=== PATIENT | male | born 1950 | race Caucasian/White ===

== ENCOUNTER 2024-05-15 04:26 | Emergency (ER) | payer MEDICARE, OTHER ==
[2024-05-15 05:01] LABS: Band 2 % (5-11); Hematocrit 44.2 % (42.0-52.0); Hemoglobin 15.4 g/dL (14.0-18.0); Lymphocytes 17 % (21-51); MDiff Complete? YES; Mean Corpuscular HGB CONC 34.9 g/dL (32.0-36.0); Mean Corpuscular Volume 94.6 fl (78.0-98.0); Mean Platelet Volume 5.8 fL (7.4-10.4); Monocytes 3 % (0-10); Neutrophil 78 % (42-75); Platelet Count 382 10x3/uL (130-400); RBC Distribution Width 10.8 % (11.5-14.5); Red Blood Cell (RBC) Count 4.67 mill/uL (4.70-6.10); White Blood Cell (WBC) Count 8.9 10x3/uL (4.8-10.8)
[2024-05-15] MEDS ORDERED: Sodium Chloride 0.9% 500 ML ONE ×3 (05:06→08:54)
[2024-05-15 05:08] LABS: ALT (SGPT) 17 U/L (Less than 45); AST (SGOT) 19 U/L (11-34); Albumin 4.2 g/dL (3.1-4.5); Alkaline Phosphatase 50 U/L (40-110); Anion Gap 24 mmol/L (10-20); BUN (Urea Nitrogen) 28 mg/dL (8.4-25.7); Bilirubin, Total 1.9 mg/dL (0.3-1.2); Calc. Creatinine Clearance 0 mL/min (70-130); Calcium 11.2 mg/dL (7.8-10.44); Carbon Dioxide 21 mmol/L (23-31); Chloride 96 mmol/L (98-107); Estimated GFR 54; Globulin 3.8 g/dL (2.4-3.5); Glucose 221 mg/dL (83-110); Lipase 80 U/L (8-78); Potassium 3.1 mmol/L (3.5-5.1); Sodium 138 mmol/L (136-145)
[2024-05-15] MEDS ORDERED: Pantoprazole 40 MG VIAL ONE (05:11)
[2024-05-15 05:21] LABS: Troponin I 0.012 ng/mL (< 0.028)
[2024-05-15] MEDS ORDERED: Mag-Al 1200 mg/1200 mg/30 ML UDCUP ONE (05:22)
[2024-05-15] MEDS ORDERED: Lidocaine Viscous Sol 2% 15 ml UD Cup ONE (05:22)
[2024-05-15] MEDS ORDERED: Piperacillin/Tazobactam 3.375 GM VIAL ONE (06:11)
[2024-05-15] MEDS ORDERED: Sodium Chloride 0.9% 100 ML ONE (06:12)
[2024-05-15] MEDS ORDERED: HYDROmorphone 0.5 MG/0.5 ML SYRINGE ONE (06:13)
[2024-05-15] MEDS ORDERED: Ondansetron PF 4 MG/2 ML Vial ONE (06:13)
[2024-05-15] MEDS ORDERED: Digoxin 0.5 MG/2 ML AMP ONE ×2 (06:45→07:56)
[2024-05-15] MEDS ORDERED: Morphine 4 MG/ML VIAL ONE (08:26)
[2024-05-15] MEDS ORDERED: Metoprolol Tartrate 5 MG (5 mL) VIAL ONE ×2 (08:26→09:07)
[2024-05-15] MEDS ORDERED: Potassium Chloride 20 MEQ (100 mL) BAG ONE (08:54)
[2024-05-15] MEDS ORDERED: Iopamidol 370 76% 100 ML VIAL ONE (09:00)
[2024-05-15] MEDS ORDERED: Magnesium 2 GM/50 ML BAG (IN WATER) ONE (09:26)
== END 2024-05-15 09:50 | disposition short-term general hospital (02) ==
LOC: MADERS 04:26
DX: K25.5 Chronic or unspecified gastric ulcer with perforation (principal); E87.6 Hypokalemia; E83.42 Hypomagnesemia; E83.52 Hypercalcemia; I10 Essential (primary) hypertension; E11.9 Type 2 diabetes mellitus without complications; E78.5 Hyperlipidemia, unspecified; Z79.84 Long term (current) use of oral hypoglycemic drugs; Z79.899 Other long term (current) drug therapy
CPT/HCPCS: 36415; 74177; 80053; 83605; 83690; 83735; 83880; 84484; 85025; 93005; 96361; 96365; 96367; 96375; 96376; J1160; J1171; J2270; J2405; J2470; J2543; J3475; J3480; J7030; Q9967